=== PATIENT | male | born 1945 | race Caucasian/White ===

== ENCOUNTER 2019-08-31 | Emergency (ER) | payer OTHER ==
--- NOTE | 2019-08-31 14:48 | NUR ---
RECEIVED PT WIT LMA 8Y EMS. PT NEVER SHOWED RATE ACTIVITY ON HEART MONITOR.
== END 2019-08-31 14:39 | disposition expired | DRG 999 ==
PROC: 5A12012 Performance of Cardiac Output, Single, Manual (ICD-10-PCS; principal; 2019-08-31)
DX: I46.9 Cardiac arrest, cause unspecified (principal); S42.302A Unspecified fracture of shaft of humerus, left arm, initial encounter for closed fracture; S82.391B Other fracture of lower end of right tibia, initial encounter for open fracture type I or II; S82.831B Other fracture of upper and lower end of right fibula, initial encounter for open fracture type I or II; S00.03XA Contusion of scalp, initial encounter; S40.812A Abrasion of left upper arm, initial encounter; S40.811A Abrasion of right upper arm, initial encounter; V28.4XXA Motorcycle driver injured in noncollision transport accident in traffic accident, initial encounter